=== PATIENT | female | born 1970 | race Caucasian/White ===

== ENCOUNTER 2016-07-05 01:24 | Emergency (ER) | payer MEDICAID, OTHER ==
[~2016-07-05] VITALS: Ht 160 cm; Wt 74.8 kg
[2016-07-05 01:30] VITALS: BP 179/90
[2016-07-05] MEDS ORDERED: METO37.5 PO (01:43)
[2016-07-05] MEDS ORDERED: LEVO10VL IM (01:43)
[2016-07-05] MEDS ORDERED: OMEP10CASR PO (01:43)
[2016-07-05 03:01] LABS: EOS # 0.3 K/mm3 (0.0-0.50); EOS % 5.8 % (0.0-3.0); LARGE UNSTAINED CELL # 0.2 K/mm3 (0.0-0.4); LARGE UNSTAINED CELL % 3.6 % (0.0-4.0); LYMPH # 1.2 K/mm3 (1.5-4.5); LYMPH % 24.6 % (24.0-44.0); MEAN CORPUSCULAR HEMOGLOBIN 17.9 pg (27.0-33.0); MEAN CORPUSCULAR HGB CONC 26.2 g/dl (32.0-36.5); MEAN CORPUSCULAR VOLUME 68.4 fl (80.0-96.0); MONO # 0.3 K/mm3 (0.0-0.8); MONO % 6.6 % (0.0-5.0); NEUTROPHILS # 2.8 K/mm3 (1.8-7.7); NEUTROPHILS % 58.4 % (36.0-66.0); PLATELET COUNT, AUTOMATED 368 k/mm3 (150-450); WHITE BLOOD COUNT 4.8 K/mm3 (4.0-10.0)
[2016-07-05 03:14] LABS: ADD MORPHOLOGY? YES
[2016-07-05 03:20] LABS: ANISOCYTOSIS 2+; HYPOCHROMASIA 3+; MICROCYTOSIS 2+
[2016-07-05 03:21] LABS: TARGET CELLS 1+
[2016-07-05 03:23] LABS: ANION GAP 13 MEQ/L (8-16); BLOOD UREA NITROGEN 5 MG/DL (7-18); CALCIUM LEVEL 8.5 MG/DL (8.5-10.1); CARBON DIOXIDE LEVEL 22 MEQ/L (21-32); CHLORIDE LEVEL 108 MEQ/L (98-107); CREATININE FOR GFR 0.58 MG/DL (0.55-1.02); GLOMERULAR FILTRATION RATE > 60.0 (>58); GLUCOSE, FASTING 104 MG/DL (70-105); POTASSIUM SERUM 3.7 MEQ/L (3.5-5.1); SODIUM LEVEL 143 MEQ/L (136-145)
--- NOTE | 2016-07-05 09:59 | ECGEPIP ---
Stationary ECG Study [facility] - ED Test Date: 2016-07-05 Pat Name: JONA HAM Department: Room: - Gender: F Faculty Research Assistant: stefano : 1970 Requested By: MARIETTA Kapadia Order Number: [id number] Reading MD: Carol Ann Cunningham Measurements Intervals [place] Rate: 100 P: 11 [place]: 151 QRS: 11 QRSD: 94 T: -3 QT: 342 QTc: 442 Interpretive Statements SINUS TACHYCARDIA MODERATE ST DEPRESSION NO PRIOR FOR COMPARISON Electronically Signed On 07-05-2016 9:08:57 EDT by Carol Ann Cunningham
[2016-07-06] MEDS ORDERED: SUCR1SS PO (14:26)
[2016-07-06] MEDS ORDERED: PROT1TAB2 PO (14:28)
== END 2016-07-05 03:43 | disposition left against medical advice (07) ==
LOC: M ED 03:18
DX: R07.89 Other chest pain (principal); D64.9 Anemia, unspecified; I10 Essential (primary) hypertension; E03.9 Hypothyroidism, unspecified; Z82.49 Family history of ischemic heart disease and other diseases of the circulatory system

== ENCOUNTER 2016-07-06 08:49 | Emergency (ER) | payer OTHER ==
[~2016-07-06] VITALS: Ht 160 cm; Wt 74.4 kg
[~2016-07-06 08:49] MED LIST: LEVO10VL IM; METO37.5 PO; OMEP10CASR PO
--- NOTE | 2016-07-06 09:46 | REP ---
PORTABLE CHEST X-RAY: SINGLE VIEW. HISTORY: Chest pain. FINDINGS: The lungs are well inflated and clear. Pleural angles are sharp. Heart size is normal. Pulmonary vasculature is not increased. EKG monitoring electrodes overlie the chest. IMPRESSION: No active disease. Signed by Edgardo Fragoso MD 07/06/2016 06:17 P
[2016-07-06 09:50] LABS: BASO % 0.8 % (0.0-1.0); EOS # 0.2 K/mm3 (0.0-0.50); EOS % 5.2 % (0.0-3.0); LARGE UNSTAINED CELL # 0.2 K/mm3 (0.0-0.4); LYMPH # 1.2 K/mm3 (1.5-4.5); LYMPH % 24.1 % (24.0-44.0); MEAN CORPUSCULAR HEMOGLOBIN 17.4 pg (27.0-33.0); MEAN CORPUSCULAR HGB CONC 25.9 g/dl (32.0-36.5); MEAN CORPUSCULAR VOLUME 67.3 fl (80.0-96.0); MONO # 0.4 K/mm3 (0.0-0.8); MONO % 8.1 % (0.0-5.0); NEUTROPHILS # 2.8 K/mm3 (1.8-7.7); NEUTROPHILS % 57.8 % (36.0-66.0); PLATELET COUNT, AUTOMATED 388 k/mm3 (150-450); RED CELL DISTRIBUTION WIDTH 19.9 % (11.5-14.5); WHITE BLOOD COUNT 4.8 K/mm3 (4.0-10.0)
[2016-07-06 09:53] LABS: ALBUMIN 3.4 GM/DL (3.2-5.2); ALBUMIN/GLOBULIN RATIO 0.69 (1.00-1.93); ALKALINE PHOSPHATASE 101 U/L (45-117); ALT/SGPT 59 U/L (12-78); AMYLASE 53 U/L (25-115); ANION GAP 14 MEQ/L (8-16); AST/SGOT 74 U/L (15-37); BILIRUBIN,DIRECT < 0.1 MG/DL (0.0-0.2); BILIRUBIN,TOTAL 0.3 MG/DL (0.2-1.0); BLOOD UREA NITROGEN 3 MG/DL (7-18); CALCIUM LEVEL 8.7 MG/DL (8.5-10.1); CARBON DIOXIDE LEVEL 20 MEQ/L (21-32); CHLORIDE LEVEL 102 MEQ/L (98-107); CREATININE FOR GFR 0.64 MG/DL (0.55-1.02); GLOMERULAR FILTRATION RATE > 60.0 (>58); GLUCOSE, FASTING 107 MG/DL (70-105); POTASSIUM SERUM 3.5 MEQ/L (3.5-5.1); SODIUM LEVEL 136 MEQ/L (136-145); TOTAL PROTEIN 8.3 GM/DL (6.4-8.2)
[2016-07-06 09:56] LABS: ADD MORPHOLOGY? YES
[2016-07-06] MEDS ORDERED: GI COCKTAIL 50ML BTL(HYOSCYAMINE/MAALOX/LIDOCAINE VISCOUS)(1:3:1) PO ONE (10:00)
[2016-07-06] MEDS ORDERED: SUCRALFATE 1 GM TAB PO ONE (10:00)
[2016-07-06 10:19] LABS: HYPOCHROMASIA 3+; MICROCYTOSIS 3+; TEAR DROP CELLS 1+
--- NOTE | 2016-07-06 11:20 | ECGEPIP ---
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 RBBB NSTTW ABNORMALITIES SIMILAR TO 07/05/16 Electronically Signed On 07-06-2016 11:20:03 EDT by Claudio De Los Santos
[2016-07-06] MEDS ORDERED: SUCR1SS PO (14:26)
[2016-07-06] MEDS ORDERED: PROT1TAB2 PO (14:28)
[2016-07-06] MEDS ORDERED: ENOXAPARIN 80 MG/0.8 ML SYRINGE (J1650) SC ONE (16:15)
[2016-07-06] MEDS ORDERED: CLOPIDOGREL 75 MG TAB PO ONE (16:15)
[2016-07-06] MEDS ORDERED: ONDANSETRON 4MG/2ML VIAL (J2405) IV ONE (16:30)
--- NOTE | 2016-07-06 17:36 | ECGEPIP ---
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 RBBB NONSPECIFIC T WAVE ABNORMALITY SIMILAR TO PRIOR ON SAME DATE Electronically Signed On 07-06-2016 17:36:34 EDT by Claudio De Los Santos
[2016-07-06 18:41] VITALS: BP 172/87
== END 2016-07-06 18:42 | disposition short-term general hospital (02) ==
LOC: EDBD 08:49 → M ED 09:55
DX: I24.9 Acute ischemic heart disease, unspecified (principal); I10 Essential (primary) hypertension; K21.9 Gastro-esophageal reflux disease without esophagitis; F17.200 Nicotine dependence, unspecified, uncomplicated; Z79.899 Other long term (current) drug therapy; Z82.49 Family history of ischemic heart disease and other diseases of the circulatory system
CPT/HCPCS: 71010; 80048; 80076; 82150; 82550; 82553; 83690; 83880; 84443; 85025; 93005; 93041; 94760; 96372; 96374; 99285; J1650; J2405

== ENCOUNTER 2016-08-08 13:52 | Outpatient (RCR) | payer OTHER ==
[~2016-08-08 13:52] MED LIST changes: +PROT1TAB2 PO; +SUCR1SS PO
== END 2016-08-21 ==
LOC: M CR 13:52
PROVIDERS: ATTEND Internal Medicine Cardiovascular Disease
DX: Z51.89 Encounter for other specified aftercare (principal); Z98.1 Arthrodesis status

== ENCOUNTER → 2016-08-15 | Outpatient (CLI) | payer OTHER ==
[2016-08-15 18:40] LABS: MEAN CORPUSCULAR HEMOGLOBIN 25.6 pg (27.0-33.0); MEAN CORPUSCULAR HGB CONC 29.8 g/dl (32.0-36.5); MEAN CORPUSCULAR VOLUME 85.8 fl (80.0-96.0); RED CELL DISTRIBUTION WIDTH 26.6 % (11.5-14.5); WHITE BLOOD COUNT 4.3 K/mm3 (4.0-10.0)
== END ==
LOC: M SMT 14:25
PROVIDERS: ATTEND Internal Medicine Cardiovascular Disease
DX: D64.9 Anemia, unspecified (principal)

== ENCOUNTER 2016-08-22 08:31 | Outpatient (RCR) | payer OTHER ==
[2016-09-20] MEDS ORDERED: LEVO125T3 (08:37)
[2016-09-20] MEDS ORDERED: FERR32TA (08:37)
[2016-09-20] MEDS ORDERED: ASPI81CH (08:37)
[2016-09-20] MEDS ORDERED: VITA-193 (08:37)
[2016-09-20] MEDS ORDERED: ATOR40TA (08:37)
[2016-09-20] MEDS ORDERED: OMEP20CA3 (08:37)
[2016-09-20] MEDS ORDERED: FOLI1TAB2 (08:37)
[2016-09-20] MEDS ORDERED: METO-346 PO (08:37)
== END 2016-09-21 ==
LOC: M CR 08:31
PROVIDERS: ATTEND Internal Medicine Cardiovascular Disease
DX: Z51.89 Encounter for other specified aftercare (principal); Z98.1 Arthrodesis status

== ENCOUNTER → 2016-09-12 | Outpatient (CLI) | payer OTHER ==
[~2016-09-12] MED LIST changes: +ASPI81CH; +ATOR40TA; +FERR32TA; +FOLI1TAB2; +LEVO125T3; +METO-346 PO; +OMEP20CA3; +VITA-193
--- NOTE | 2016-09-12 12:56 | REP ---
Pelvic ultrasound including transabdominal, endovaginal and Doppler ultrasound assessment: The uterus is anteverted and normal size measuring 8.03 x 1 x 4.3 cm. The myometrium is heterogeneous. There is a 1.9 cm fibroid in the posterior myometrium that extends from the subserosal surface to the submucosal surface. The endometrium is not thickened measuring 9.4 mm. The ovaries are normal size. Right ovary measures 2.6 x 1.6 x 1.7 cm. Left ovary measures 1.9 x 1.2 x 1.3 cm. There is a 1.5 cm left ovarian follicle. There is vascular flow in the right ovary, with the Doppler resistive index of the intraparenchymal arteries on the right measuring 0.53. There is no Doppler assessment of the intraparenchymal arteries on the left. No free fluid in the pelvis. Impression: 1.9 cm fibroid in the posterior myometrium extending from the subserosal surface to the submucosal surface. 1.5 cm left ovarian follicle. Signed by Francisco Javier Thompson MD 09/12/2016 12:47 P
== END ==
LOC: M SMT 11:29
PROVIDERS: ATTEND Obstetrics & Gynecology
DX: N93.9 Abnormal uterine and vaginal bleeding, unspecified (principal); D25.9 Leiomyoma of uterus, unspecified

== ENCOUNTER → 2016-09-12 | Outpatient (CLI) | payer OTHER ==
[2016-09-12 13:08] LABS: INR 1.09
[2016-09-12 13:11] LABS: MEAN CORPUSCULAR HEMOGLOBIN 30.3 pg (27.0-33.0); MEAN CORPUSCULAR VOLUME 97.8 fl (80.0-96.0); RED CELL DISTRIBUTION WIDTH 23.6 % (11.5-14.5); WHITE BLOOD COUNT 4.8 K/mm3 (4.0-10.0)
[2016-09-12 13:57] LABS: ALBUMIN 3.7 GM/DL (3.2-5.2); ALBUMIN/GLOBULIN RATIO 0.84 (1.00-1.93); ALKALINE PHOSPHATASE 96 U/L (45-117); ALT/SGPT 29 U/L (12-78); ANION GAP 10 MEQ/L (8-16); AST/SGOT 39 U/L (15-37); BILIRUBIN,TOTAL 0.2 MG/DL (0.2-1.0); BLOOD UREA NITROGEN 10 MG/DL (7-18); CALCIUM LEVEL 8.5 MG/DL (8.5-10.1); CARBON DIOXIDE LEVEL 24 MEQ/L (21-32); CHLORIDE LEVEL 105 MEQ/L (98-107); CHOLESTEROL LEVEL 199 MG/DL (<200); CREATININE FOR GFR 0.65 MG/DL (0.55-1.02); GLOMERULAR FILTRATION RATE > 60.0 (>58); GLUCOSE, FASTING 84 MG/DL (70-105); SODIUM LEVEL 139 MEQ/L (136-145); TOTAL PROTEIN 8.1 GM/DL (6.4-8.2); TRIGLYCERIDES LEVEL 231 MG/DL (<150)
== END ==
LOC: M LAB 12:34
PROVIDERS: ATTEND Family Medicine
DX: Z01.812 Encounter for preprocedural laboratory examination (principal); I10 Essential (primary) hypertension

== ENCOUNTER → 2016-09-13 | Outpatient (REF) | payer OTHER | LOC: M LAB REF 10:50 | PROVIDERS: ATTEND Obstetrics & Gynecology | DX: N93.9 Abnormal uterine and vaginal bleeding, unspecified (principal) ==

== ENCOUNTER 2016-09-22 09:00 | Outpatient (RCR) | payer OTHER ==
[~2016-09-22 09:00] MED LIST changes: -ATOR40TA; +ATOR40TA75; -FOLI1TAB2; +FOLI1TAB4; -LEVO125T3; +LEVO125T4
[2016-10-03] MEDS ORDERED: ASPI81TA85 PO (06:58)
[2016-10-03] MEDS ORDERED: CARV12.5 PO (06:58)
[2016-10-04] MEDS ORDERED: MOTR200T44 PO (09:20)
== END 2016-10-21 ==
LOC: M CR 09:00
PROVIDERS: ATTEND Internal Medicine Cardiovascular Disease
DX: Z51.89 Encounter for other specified aftercare (principal); Z98.1 Arthrodesis status

== ENCOUNTER 2016-10-03 06:00 | Day surgery (SDC) | payer OTHER ==
[2016-10-03] VITALS (7 sets, daily range): BP systolic 128–192; BP diastolic 68–96
[~2016-10-03] VITALS: Ht 160 cm; Wt 75.0 kg
[~2016-10-03 06:00] MED LIST changes: +ATOR40TA; -ATOR40TA75; +FOLI1TAB2; -FOLI1TAB4; +LEVO125T3; -LEVO125T4
[2016-10-03] MEDS ORDERED: LIDOCAINE 1% SDV 5 ML VIAL SC ONE (06:15)
[2016-10-03] MEDS ORDERED: LR 1,000 ML IV SCH ×2 (06:15→09:00)
[2016-10-03 06:24] LABS: MEAN CORPUSCULAR HEMOGLOBIN 32.9 pg (27.0-33.0); MEAN CORPUSCULAR VOLUME 99.8 fl (80.0-96.0); RED CELL DISTRIBUTION WIDTH 18.8 % (11.5-14.5); WHITE BLOOD COUNT 4.6 K/mm3 (4.0-10.0)
[2016-10-03 06:39] LABS: CONTROL LINE HCG INT CTR LINE PRESENT
[2016-10-03] MEDS ORDERED: ASPI81TA85 PO (06:58)
[2016-10-03] MEDS ORDERED: CARV12.5 PO (06:58)
[2016-10-03] MEDS ORDERED: SILVER NITRATE APPLICATOR As Ordered ONE (07:16)
[2016-10-03] MEDS ORDERED: LIDOCAINE 2% INJ 100 MG/5 ML SDV (FOR ANES.) As Ordered ONE (07:38)
[2016-10-03] MEDS ORDERED: MIDAZOLAM INJ 2 MG/2 ML VIAL (J2250) As Ordered ONE (07:38)
[2016-10-03] MEDS ORDERED: PROPOFOL 200 MG/20 ML VIAL As Ordered ONE (07:38)
[2016-10-03] MEDS ORDERED: dexameTHASONE 4 MG/ML 1ML VIAL (J1100) As Ordered ONE (07:38)
[2016-10-03] MEDS ORDERED: fentaNYL 100 MCG/2 ML INJECTION (J3010) As Ordered ONE ×2 (07:38→10:05)
[2016-10-03] MEDS ORDERED: ONDANSETRON 4MG/2ML VIAL (J2405) As Ordered ONE (07:47)
[2016-10-03] MEDS ORDERED: ONDANSETRON 4MG/2ML VIAL (J2405) IV PRN (09:00)
[2016-10-03] MEDS ORDERED: HYDROmorphone HCL 1 MG/ML SYRINGE (J1170) IV PRN (09:00)
[2016-10-03] MEDS ORDERED: FERROUS GLUCONATE 324 MG TAB PO SCH (09:00)
[2016-10-03] MEDS ORDERED: PERCOCET 5MG/325MG TAB PO PRN (09:00)
[2016-10-03] MEDS ORDERED: CARVedilol 12.5 MG TAB PO SCH ×2 (09:00→21:00)
[2016-10-03] MEDS: LABETALOL HCL 100 MG/20 ML VIAL IV SCH ×6 (09:30→10:35)
[2016-10-03] MEDS ORDERED: LABETALOL HCL 100 MG/20 ML VIAL As Ordered ONE (09:32)
[2016-10-03] MEDS ORDERED: hydrALAZINE INJ 20 MG/ML VIAL As Ordered ONE (09:58)
[2016-10-03] MEDS: hydrALAZINE INJ 20 MG/ML VIAL IV SCH ×4 (10:01→10:30)
[2016-10-03] MEDS: fentaNYL 100 MCG/2 ML INJECTION (J3010) IV PRN ×4 (10:06→10:56)
[2016-10-03] MEDS: **hydrALAZINE** 10 MG TAB PO PRN (13:52)
[2016-10-03] MEDS: ATORVASTATIN 20 MG TAB PO SCH (13:53)
[2016-10-03] MEDS: FERROUS GLUCONATE 324 MG TAB PO SCH ×2 (13:53→20:15)
[2016-10-03] MEDS: CARVedilol 12.5 MG TAB PO SCH ×2 (13:53→20:15)
[2016-10-03] MEDS: LEVOTHYROXINE 125MCG TABLET (0.125MG) PO SCH (13:53)
[2016-10-03] MEDS: FOLIC ACID 1 MG TAB PO SCH (13:54)
[2016-10-03] MEDS: LR 1,000 ML IV SCH ×2 (13:54→16:09)
--- NOTE | 2016-10-03 13:58 | CR.PDOC ---
[facility] Consultation Consultation HOSPITALIST CONSULT NOTE Date of consult: 10/03/2016 Referring Provider: Dr. Gregory PCP: Dr. Cooley Reason for Consult: Uncontrolled blood pressure HPI: 46-year-old female with hypertension, coronary artery disease status post PR and bare metal stents in June 2016, hypothyroidism, gastritis who underwent same-day surgery with Dr. Gregory for abnormal uterine bleeding. He performed an endometrial ablation and hysteroscopy today. Dr. Gregory has called us to evaluate the patient because she has been noted to be hypertensive throughout the day, and the anesthesiologist was uncomfortable discharging her home with her blood pressures. Upon my interview with the patient, she reports some cramping, but otherwise states that she feels well. She denies any chest pain or difficulty breathing and states that she did not have any vomiting postoperatively. She tells me that she used to take metoprolol twice a day, but approximately 10 days ago, this was changed to Coreg. She states that she did take her blood pressure medicine this morning. She tells me that since the change in her medication, she has been checking her blood pressure at home, and in the mornings it has been running in the 180s, in the afternoons it has been running in the 150s to 160s, and in the evening it is been running in the 130s. She states that this is not a change, as even when she was taking the metoprolol , her blood pressure had been running high. 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 She usually does not take her Coreg until she eats breakfast, which is sometimes not until 11 AM. 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 She quit smoking when she had her heart attack on 07/06/2016. She reports drinking approximately 3-5 alcoholic drinks daily, and her last drink was last night. Allergies: No known drug allergies Review of systems: General: Negative for fever and chills Eyes: Negative for vision changes and ocular discharge ENT: Negative for sore throat and nose bleed Cardiovascular: Negative for chest pain and palpitations Respiratory: Negative for cough and shortness of breath GI: Negative for nausea, vomiting, diarrhea, constipation Musculoskeletal: Negative for neck and back pain Skin: Negative for rash Neuro: Negative for headache, dizziness, numbness, tingling Psych: Negative for depression and suicidal ideation Endocrine: Negative for polyuria : Negative for dysuria Heme: Positive for vaginal bleeding, which is why she underwent endometrial ablation today Home meds: See below Physical exam: Vital signs: Vital Sign - Last 24 Hours 10/03/16 10/03/16 10/03/16 10/03/16 06:45 08:05 08:19 08:35 Temp 99.0 97.6 Pulse 70 82 64 70 Resp 16 18 18 18 B/P (MAP) 175/86 (115) 179/85 (116) 157/84 (108) 162/96 (118) Pulse Ox 96 94 93 97 O2 Delivery Room Air Room Air Room Air Room Air 10/03/16 10/03/16 10/03/16 10/03/16 08:47 09:05 09:20 09:30 Temp 97.8 Pulse 64 64 60 65 Resp 18 18 18 B/P (MAP) 170/94 (119) 191/90 (123) 200/90 (126) 203/94 Pulse Ox 97 95 94 O2 Delivery Room Air Room Air Room Air 10/03/16 10/03/16 10/03/16 10/03/16 09:35 09:39 09:44 09:50 Pulse 61 64 60 60 Resp 18 B/P (MAP) 212/94 (133) 212/96 204/94 212/108 Pulse Ox 94 O2 Delivery Room Air 10/03/16 10/03/16 10/03/16 10/03/16 09:50 09:55 10:01 10:05 Pulse 60 61 63 Resp 18 18 B/P (MAP) 212/108 (142) 213/94 227/103 206/91 (129) Pulse Ox 93 O2 Delivery Room Air Room Air 10/03/16 10/03/16 10/03/16 10/03/16 10:06 10:07 10:11 10:12 Resp 18 18 B/P (MAP) 211/98 194/86 10/03/16 10/03/16 10/03/16 10/03/16 10:18 10:30 10:34 10:35 Pulse 73 70 74 Resp 20 20 B/P (MAP) 169/67 (101) 174/81 183/78 (113) 183/78 Pulse Ox 94 94 O2 Delivery Room Air Room Air 10/03/16 10/03/16 10/03/16 10/03/16 10:50 10:56 11:05 11:22 Pulse 70 70 80 Resp 20 18 20 20 B/P (MAP) 169/79 (109) 173/79 (110) 161/72 (101) Pulse Ox 95 96 97 O2 Delivery Room Air Room Air Room Air 10/03/16 10/03/16 10/03/16 10/03/16 11:35 11:50 11:53 12:05 Pulse 69 72 73 84 Resp 20 20 20 20 B/P (MAP) 179/82 (114) 178/84 (115) 176/81 (112) 180/81 (114) Pulse Ox 97 97 99 98 O2 Delivery Room Air Room Air Room Air Room Air 10/03/16 10/03/16 10/03/16 12:56 13:52 13:53 Pulse 80 80 Resp 20 B/P (MAP) 183/93 (123) 192/96 192/96 Pulse Ox 97 O2 Delivery Room Air Gen.: awake, alert, no acute distress Eyes: Extraocular movements intact, normal sclera ENT: Moist mucous membranes Cardiovascular: RRR, no murmurs rubs or gallops Lungs: clear to auscultation bilaterally, no rales, rhonchi, or wheeze Abdomen: Soft, NT/ND, normal BS Musculoskeletal: normal range of motion Extremities: No peripheral edema Neuro: alert and oriented 3, normal speech, no focal deficits Psych: Normal mood with congruent affect Labs and radiology: See below CBC is unremarkable Assessment and plan: 46-year-old female with hypertension, coronary artery disease status post PR and bare metal stents in June 2016, hypothyroidism, gastritis who underwent same-day surgery with Dr. Gregory for abnormal uterine bleeding. We have been consulted for uncontrolled hypertension. 1. Hypertension: This has been uncontrolled all day, and upon discussion with the patient, it appears that it has been uncontrolled as an outpatient as well. She recently underwent a medication change 10 days ago, and has not yet had any follow-up with her physicians to have dose adjustments. From what she reports to me of the blood pressure she is seeing at home, it does not appear that her blood pressure currently is much different than it has been as an outpatient. At this time, I would recommend that the patient's Coreg be increased from 12.5 mg by mouth twice a day to 25 mg by mouth BID. The patient will need to follow- up with her primary care physician within the next week for further blood pressure check and dose adjustments. The patient reports that she often does not take her morning dose until 11 AM when she eats breakfast, and she also notes that her blood pressure is highest in the mornings. I have recommended to her that she begin taking her blood pressure medicine as soon as she wakes up. While she is inpatient, and until she receives her first dose of the increased coreg (which should be this evening), we will use PRN PO hydralazine for extremely elevated BPs. 2. Coronary artery disease status post PR and bare metal stents in June 2016: Continue home statin, beta brianna. The patient should resume her home aspirin when she gets approval from her surgeon to do so. 3. Hypothyroidism: Continue home Synthroid. 4. Gastritis: Continue home PPI. 5. Daily alcohol consumption: The patient and I did discuss the benefits of alcohol cessation. While the patient has thought of this before, it does not sound that she is quite ready to stop at this time. She denies any prior history of withdrawal symptoms even when she has gone several days without a drink. If the patient remains here beyond tomorrow, I would advise monitoring her closely for any withdrawal, and if she begins to experience withdrawal, I would recommend scheduled serax with PRN ativan. DVT prophylaxis: As per her surgeon Thank you for this consult. We will continue to follow along with you. Dr. Paz will assume coverage in the morning. Vital Signs/I&O Vital Signs Date Time Temp Pulse Resp B/P (MAP) Pulse Ox O2 Delivery O2 Flow Rate FiO2 10/03/16 13:53 80 192/96 10/03/16 12:56 20 97 Room Air 10/03/16 09:05 97.8 Laboratory Data Labs 24H Laboratory Tests 2 10/03/16 06:14: Human Chorionic Gonadotropin, Qual NEGATIVE CBC/BMP Laboratory Tests 10/03/16 06:14 Red Blood Count 3.62 L, Mean Corpuscular Volume 99.8 H, Mean Corpuscular Hemoglobin 32.9, Mean Corpuscular Hemoglobin Concent 33.0, Red Cell Distribution Width 18.8 H Allergies Coded Allergies: No Known Allergies (Unverified , 10/03/16) Home Medications Scheduled Aspirin (Aspir-81) 81 Mg Tab, 81 MG PO DAILY, #30 (Reported) Atorvastatin Calcium (Atorvastatin Calcium) 40 Mg Tab, DAILY, #30 (Reported) Carvedilol (Carvedilol) 12.5 Mg Tab, 12.5 MG PO BID, (Reported) Ferrous Gluconate (Ferrous Gluconate) 324 Mg Tab, BID, #60 (Reported) Omeprazole (Omeprazole) 20 Mg Cap, BID, #60 (Reported) Miscellaneous Medications Cyanocobalamin (Vitamin B-12) 500 Mcg Tab, #30 (Reported) Folic Acid (Folic Acid) 1 Mg Tab, #30 (Reported) Levothyroxine Sodium (Synthroid) 125 Mcg Tab, #30 (Reported) HOWARD ROBLES Oct 03, 2016 13:58
[2016-10-03] MEDS: ASPIRIN 81 MG ENTERIC TAB PO SCH (14:13)
--- NOTE | 2016-10-03 14:31 | RO ---
DATE OF PROCEDURE: 10/03/2016 PREOPERATIVE DIAGNOSIS: Abnormal uterine bleeding. POSTOPERATIVE DIAGNOSIS: Abnormal uterine bleeding. PROCEDURE PERFORMED: Hysteroscopy, dilatation and curettage, NovaSure endometrial ablation. SURGEON: Evangelist Gregory DO RESET MERCHANDISER: None. ANESTHESIA: General via LMA. SPECIMENS TO PATHOLOGY: Endometrial curettings. ESTIMATED BLOOD LOSS Less than 5 mL. FLUIDS REPLACED: 600 mL of lactated Ringer's. DRAINS: In-and-out catheter, 50 mL of urine output. COMPLICATIONS: None. PREOPERATIVE ANTIBIOTICS: None indicated. INTRAOPERATIVE FINDINGS: Uterine cavity approximately 6 cm in length. Uterus sounded to approximately 9 cm with cervical length 3 cm. Cavity width assessment was 4.2 cm. The power setting was 139, total ablation time was 47 seconds. Hysteroscope findings: No evidence of the intrauterine masses/intracavitary masses. INDICATION: The patient is a 46-year-old with abnormal uterine bleeding, desirous of NovaSure endometrial ablation. Assessment of the endometrium prior to today's procedure revealed benign tissue. No evidence of hyperplasia, neoplasia or malignancy. PROCEDURE: The patient was counseled and consented on risks, benefits, indications, and alternatives of the procedure. Informed consent was obtained. She was taken to the operating room with an IV running, placed on operating table in the dorsal supine position. General anesthesia was administered and airway secured without any difficulty. She was placed in the high lithotomy position. She was prepared and draped in normal sterile fashion. Time-out was performed per protocol. The bladder was drained with an in-and-out catheter under sterile conditions. Sterile speculum was placed with good visualization of the entire cervix. The anterior lip of the cervix was grasped with single-tooth tenaculum and downward traction was applied. The uterus was sounded to 9 cm. The cervical length was assessed to be 3 cm, giving a cavity length of 6 cm. The cervix was then sequentially dilated with Luis dilators up to #17. The hysteroscope was placed transcervical into the intrauterine cavity with findings noted above. Normal hysteroscope findings were noted. No intracavitary mass was noted. The hysteroscope was removed. Sharp curettage was then performed throughout the intrauterine cavity. The tissue was sent to pathology for permanent section. The NovaSure device was inserted transcervical into the intrauterine cavity and deployed in typical fashion. The width assessment was performed given 4.2 cm. The cavity assessment was then activated. The cavity assessment cleared and the NovaSure device was activated. Total ablation time was 47 seconds. The NovaSure device was removed in typical fashion. The mesh wiring was examined after removal and noted to have charred tissue on both sides. The hysteroscope was placed transcervically into the intrauterine cavity for one final intrauterine cavity assessment and the charred tissue was noted throughout globally in the intrauterine cavity. Excellent filling and distension of the intrauterine cavity was noted indicating no evidence of uterine perforation. The hysteroscope was removed. Claim Auditor images were printed and placed in her chart. The single-tooth tenaculum was removed. The tenaculum sites were noted to be hemostatic. The uterus was drained of any excess fluid. The os was inspected and minimal bleeding from the cervical os was noted. The sponge, lap, needle and sponge counts were correct. The patient tolerated the entire procedure very well. She was taken to the postanesthesia care unit in good and stable condition.
[2016-10-03] MEDS: IBUPROFEN 800 MG TAB PO PRN ×2 (14:40→23:10)
[2016-10-03] MEDS: OMEPRAZOLE 20 MG CAP PO SCH (20:15)
[2016-10-04] VITALS (11 sets, daily range): BP systolic 140–240; BP diastolic 64–114
[2016-10-04] MEDS: **hydrALAZINE** 10 MG TAB PO PRN (02:08)
[2016-10-04] MEDS ORDERED: hydrALAZINE INJ 20 MG/ML VIAL IV ONE (02:30)
[2016-10-04] MEDS ORDERED: ALPRAZolam 0.5 MG TAB PO ONE (03:00)
[2016-10-04] MEDS: LEVOTHYROXINE 125MCG TABLET (0.125MG) PO SCH (06:09)
[2016-10-04] MEDS: FERROUS GLUCONATE 324 MG TAB PO SCH (08:23)
[2016-10-04] MEDS: FOLIC ACID 1 MG TAB PO SCH (08:24)
[2016-10-04] MEDS: OMEPRAZOLE 20 MG CAP PO SCH (08:24)
[2016-10-04] MEDS: ATORVASTATIN 20 MG TAB PO SCH (08:24)
[2016-10-04] MEDS: ASPIRIN 81 MG ENTERIC TAB PO SCH (08:24)
[2016-10-04] MEDS: CARVedilol 12.5 MG TAB PO SCH (08:24)
[2016-10-04] MEDS ORDERED: MOTR200T44 PO (09:20)
== END 2016-10-04 09:57 | disposition home or self-care (01) ==
LOC: M SDC 06:00 → M MSPAV 13:36 → M ICU 10-04 02:40 → M SDC 10-04 09:57
PROVIDERS: ATTEND Obstetrics & Gynecology
DX: N93.9 Abnormal uterine and vaginal bleeding, unspecified (principal); I10 Essential (primary) hypertension; I25.10 Atherosclerotic heart disease of native coronary artery without angina pectoris; I25.2 Old myocardial infarction; E03.9 Hypothyroidism, unspecified; K21.9 Gastro-esophageal reflux disease without esophagitis; K27.9 Peptic ulcer, site unspecified, unspecified as acute or chronic, without hemorrhage or perforation; F41.9 Anxiety disorder, unspecified; Z95.5 Presence of coronary angioplasty implant and graft; Z87.891 Personal history of nicotine dependence

== ENCOUNTER → 2016-12-19 | Outpatient (REF) | payer OTHER ==
[~2016-12-19] MED LIST changes: +ASPI81TA85 PO; -ATOR40TA; +ATOR40TA75; +CARV12.5 PO; -FOLI1TAB2; +FOLI1TAB4; -LEVO125T3; +LEVO125T4; +MOTR200T44 PO
[2016-12-19 15:43] LABS: MEAN CORPUSCULAR HEMOGLOBIN 35.9 pg (27.0-33.0); MEAN CORPUSCULAR HGB CONC 33.6 g/dl (32.0-36.5); MEAN CORPUSCULAR VOLUME 106.7 fl (80.0-96.0); RED CELL DISTRIBUTION WIDTH 15.4 % (11.5-14.5); WHITE BLOOD COUNT 4.3 K/mm3 (4.0-10.0)
== END ==
LOC: M LAB REF 13:23
PROVIDERS: ATTEND Obstetrics & Gynecology
DX: D64.9 Anemia, unspecified (principal)

== ENCOUNTER → 2017-08-24 | Outpatient (REF) | payer OTHER, SELFPAY ==
[2017-08-31 10:14] LABS: HPV LOW VOL RFLX Negative (Negative)
== END ==
LOC: M LAB REF 12:17
DX: Z12.4 Encounter for screening for malignant neoplasm of cervix (principal)
CPT/HCPCS: 88142; G0123

== ENCOUNTER → 2018-08-24 | Outpatient (CLI) | payer OTHER ==
[~2018-08-24] MED LIST changes: -ASPI81CH; +ASPI81CH49; +FOLI1TAB11; -FOLI1TAB4
[2018-08-24 21:03] LABS: BLOOD UREA NITROGEN 11 MG/DL (7-18); CALCIUM LEVEL 8.3 MG/DL (8.5-10.1); CARBON DIOXIDE LEVEL 24 MEQ/L (21-32); CHLORIDE LEVEL 106 MEQ/L (98-107); CREATININE FOR GFR 0.57 MG/DL (0.55-1.30); GLOMERULAR FILTRATION RATE > 60.0 (>58); GLUCOSE, FASTING 82 MG/DL (70-100); POTASSIUM SERUM 3.7 MEQ/L (3.5-5.1); SODIUM LEVEL 139 MEQ/L (136-145)
[2018-08-24 21:07] LABS: BASO # 0.1 10^3/uL (0.0-0.2); BASO % 1.1 % (0.0-1.0); EOS # 0.2 10^3/uL (0.0-0.50); EOS % 2.8 % (0.0-3.0); HEMOGLOBIN 14.1 g/dl (12.0-15.5); LYMPH # 1.9 10^3/uL (1.5-4.5); LYMPH % 34.8 % (24.0-44.0); MEAN CORPUSCULAR HEMOGLOBIN 34.2 pg (27.0-33.0); MEAN CORPUSCULAR HGB CONC 33.6 g/dl (32.0-36.5); MEAN CORPUSCULAR VOLUME 101.9 fl (80.0-96.0); MONO # 0.6 10^3/uL (0.0-0.8); MONO % 11.5 % (0.0-5.0); NEUTROPHILS # 2.6 10^3/uL (1.8-7.7); NEUTROPHILS % 49.6 % (36.0-66.0); PLATELET COUNT, AUTOMATED 227 10^3/uL (150-450); RED BLOOD COUNT 4.12 10^6/uL (4.00-5.40); WHITE BLOOD COUNT 5.3 10^3/uL (4.0-10.0)
== END ==
LOC: M WUC 15:38
PROVIDERS: ATTEND Internal Medicine Cardiovascular Disease
DX: I25.10 Atherosclerotic heart disease of native coronary artery without angina pectoris (principal)

== ENCOUNTER → 2019-02-14 | Outpatient (CLI) | payer OTHER ==
[~2019-02-14] MED LIST changes: +CYAN500T9; -OMEP20CA3; +OMEP20CA4; -VITA-193
[2019-02-16 15:57] LABS: HPV HYBRID CAPTURE II Negative (Negative)
== END ==
LOC: M SMT 15:03
PROVIDERS: ATTEND Obstetrics & Gynecology
DX: Z12.4 Encounter for screening for malignant neoplasm of cervix (principal)

== ENCOUNTER → 2019-05-28 | Outpatient (CLI) | payer OTHER ==
[~2019-05-28] MED LIST changes: +OMEP1CAP73; -OMEP20CA4
--- NOTE | 2019-05-28 16:16 | REPMRS ---
Patient History The patient states she had a clinical breast exam in 02/09.Family history of breast cancer under age 50 in sister, breast cancer at age 50 or over in maternal aunt, premenopausal breast cancer at age 50 or over in maternal aunt, prostate cancer at age 50 or over in maternal grandfather, endometrial cancer at age 18 in sister. Benign US guided breast biopsy of the right breast, May 21, 2012. Took hormonal contraceptives for 15 years. Digital Woman Screen Mammo: May 28, 2019 - Exam #: [id number] Bilateral CC and MLO view(s) were taken. Technologist: Kristin Murphy, Technologist Prior study comparison: May 21, 2012, right breast digital mammo diagnostic unilateral, performed at [facility]. April 03, 2012, right breast digital mammo diagnostic unilateral, performed at [facility]. FINDINGS: There are scattered fibroglandular densities. There is a needle biopsy marker clip again noted in the right breast as seen on the May 21, 2012 prior study. There are scattered benign macrocalcifications. There has been no change in the appearance of the mammogram from the prior studies. There is a mild amount of scattered fibroglandular density which is fairly symmetric. There is no interval development of dominant mass, architectural distortion, or grouped microcalcification suggestive of malignancy. 3-D tomosynthesis shows no additional findings. Assessment: BI-RADS/ACR category 2 mammogram. Benign Findings. Recommendation Breast MRI of both breasts in 6 months. Routine screening mammogram of both breasts in 1 year (for women over age 40). This patient's Lifetime Breast Cancer Risk is estimated at 21.1 %. Annual screening Breast MRI scanniing is recommended for patient's whose lifetime risk assessment is over 20%. This mammogram was interpreted with the aid of an FDA-approved computer-aided dectection system. Electronically Signed By: Odilon Fragoso MD 05/28/19 [id number]
== END ==
LOC: M WHC 12:53
PROVIDERS: ATTEND Obstetrics & Gynecology
DX: Z12.31 Encounter for screening mammogram for malignant neoplasm of breast (principal)

== ENCOUNTER → 2019-12-04 | Outpatient (REF) | payer OTHER ==
[~2019-12-04] MED LIST changes: -ASPI81TA85 PO; +ASPI81TA86 PO; +CYAN500T10; -CYAN500T9
== END ==
LOC: M WUC 15:18
PROVIDERS: ATTEND Physician Assistant
DX: J02.9 Acute pharyngitis, unspecified (principal)

== ENCOUNTER → 2020-02-24 | Outpatient (REF) | payer OTHER | LOC: M SFHCWAGY 16:52 | PROVIDERS: ATTEND Obstetrics & Gynecology | DX: Z12.4 Encounter for screening for malignant neoplasm of cervix (principal); N88.8 Other specified noninflammatory disorders of cervix uteri; Z87.42 Personal history of other diseases of the female genital tract ==

== ENCOUNTER → 2020-03-09 | Outpatient (CLI) | payer OTHER ==
[~2020-03-09] MED LIST changes: +PROHANCE 279.3MG/ML 15ML VIAL As Ordered ONE
--- NOTE | 2020-03-09 17:20 | REP ---
INDICATION: FM H/O BREAST CA HIGH RISK. [facility] lifetime risk of breast cancer 21.1%. COMPARISON: Mammogram 05/28/2019. TECHNIQUE: Three [place] MRI imaging was performed with a dedicated breast coil. Axial, coronal, and sagittal T1 and T2 weighted scans were obtained with and without fat saturation in the usual fashion. The study includes dynamically acquired post gadolinium-enhanced imaging with image subtraction. Maximum intensity projection and multi planar reformation imaging is included as well. This study is interpreted with the aid of [employer], an FDA approved computer aided detection (CAD) software program, on a dedicated breast MRI workstation. The gadolinium enhancement dose is 14 mL of intravenous ProHance. FINDINGS: There is mild scattered fibroglandular tissue bilaterally. There is minimal background parenchymal enhancement. No axillary adenopathy is seen. There is a cyst in the right breast at about 12 o'clock which is oval in shape measuring approximately 6 mm in maximum diameter. I see no suspicious enhancing mass or morphologic abnormality bilaterally. IMPRESSION: BI-RADS category 2 benign bilateral breast MRI. Small cyst 12 o'clock right breast. No suspicious enhancing mass or morphologic abnormality. Yearly supplemental screening MRI of the breasts is recommended for patients with an elevated lifetime risk of breast cancer 20% or greater, in addition to annual screening mammography, staggered every 6 months. <Electronically signed by Francisco Javier Arteaga > 03/09/20 1138
== END ==
LOC: M RAD 14:58
PROVIDERS: ATTEND Obstetrics & Gynecology
DX: N60.01 Solitary cyst of right breast (principal); Z80.3 Family history of malignant neoplasm of breast; Z91.89 Other specified personal risk factors, not elsewhere classified
CPT/HCPCS: A9576; C8908

== ENCOUNTER 2021-01-15 14:03 | Outpatient (CLI) | payer OTHER ==
[~2021-01-15] VITALS: Ht 160 cm; Wt 74.1 kg
[~2021-01-15 14:03] MED LIST changes: +ALBUTEROL 90 MCG/ACT 8GM HFA INHALER INH PRN; +ALBUTEROL SULFATE 2.5 MG/0.5 ML INH NEB SOLN INH PRN; -CYAN500T10; +EPINEPHrine INJ 1 MG/ML 1ML AMP IM PRN; +NS 1,000 ML IV SCH; -PROHANCE 279.3MG/ML 15ML VIAL As Ordered ONE; +VITA500T37; +diphenhydrAMINE 50MG/ML VIAL (J1200) IV PRN; +methylPREDNISolone 125MG 2ML VIAL IV PRN
[2021-01-15 14:23] VITALS: BP 134/88
[2021-01-15] MEDS ORDERED: ACETAMINOPHEN TAB 650MG DOSE (2X325MG) PO PRN (15:00)
[2021-01-15 15:54] VITALS: BP 136/88
[2021-01-15 16:23] VITALS: BP 142/88
[2021-01-15] MEDS ORDERED: CASIRIVIMAB/IMDEVIMAB 1,200 MG in NS 250 ML IV ONE (16:30)
[2021-01-15 17:01] VITALS: BP 143/82
[2021-01-15 18:01] VITALS: BP 160/91
== END 2021-01-15 18:02 | disposition home or self-care (01) ==
LOC: M OPCLI4 14:03 → M 4MAIN 14:05 → M OPCLI4 18:02
PROVIDERS: ATTEND Family Medicine Addiction Medicine
DX: U07.1 COVID-19 (principal)

== ENCOUNTER → 2021-11-17 | Outpatient (CLI) | payer OTHER ==
[~2021-11-17] MED LIST changes: -ALBUTEROL 90 MCG/ACT 8GM HFA INHALER INH PRN; -ALBUTEROL SULFATE 2.5 MG/0.5 ML INH NEB SOLN INH PRN; -EPINEPHrine INJ 1 MG/ML 1ML AMP IM PRN; -NS 1,000 ML IV SCH; -diphenhydrAMINE 50MG/ML VIAL (J1200) IV PRN; -methylPREDNISolone 125MG 2ML VIAL IV PRN
== END ==
LOC: M WUC 14:05
PROVIDERS: ATTEND Nurse Practitioner Family
DX: M79.671 Pain in right foot (principal)

== ENCOUNTER → 2021-11-24 | Outpatient (CLI) | payer OTHER | LOC: M RAD 11:10 | PROVIDERS: ATTEND Nurse Practitioner Family | DX: M79.671 Pain in right foot (principal) ==

== ENCOUNTER → 2022-01-14 | Outpatient (CLI) | payer OTHER | LOC: M SOG 14:02 | PROVIDERS: ATTEND Orthopaedic Surgery | DX: M25.571 Pain in right ankle and joints of right foot (principal) ==

== ENCOUNTER → 2022-02-14 | Outpatient (REF) | payer OTHER | LOC: M LAB REF 16:02 | PROVIDERS: ATTEND Nurse Practitioner Family | DX: E03.9 Hypothyroidism, unspecified (principal) ==

== ENCOUNTER → 2022-05-04 | Outpatient (REF) | payer OTHER ==
[2022-05-04 13:27] LABS: CHOLESTEROL RISK RATIO 2.04 (<5); HDL CHOLESTEROL 79.8 MG/DL (>40); THYROID STIMULATING HORMONE 48.461 uIU/ML (0.55-4.78)
== END ==
LOC: M LAB REF 12:15
PROVIDERS: ATTEND Nurse Practitioner Family
DX: E03.9 Hypothyroidism, unspecified (principal); E78.5 Hyperlipidemia, unspecified

== ENCOUNTER → 2022-07-07 | Outpatient (REF) | payer OTHER ==
[2022-07-07 18:35] LABS: THYROID STIMULATING HORMONE 3.423 uIU/ML (0.55-4.78)
[2022-07-07 18:43] LABS: ALBUMIN 3.7 G/DL (3.2-5.2); ALKALINE PHOSPHATASE 97 U/L (46-116); ALT/SGPT 58 U/L (7.0-40); AST/SGOT 139 U/L (<34); BILIRUBIN,TOTAL 0.5 MG/DL (0.3-1.2); BLOOD UREA NITROGEN 9 MG/DL (9-23); CALCIUM LEVEL 8.4 MG/DL (8.5-10.1); CARBON DIOXIDE LEVEL 22 MMOL/L (20-31); CHLORIDE LEVEL 103 MMOL/L (98-107); CREATININE FOR GFR 0.55 MG/DL (0.55-1.30); GLOMERULAR FILTRATION RATE > 60.0 (>51); GLUCOSE, FASTING 81 MG/DL (60-100); MAGNESIUM LEVEL 1.2 MG/DL (1.8-2.4); POTASSIUM SERUM 4.9 MMOL/L (3.5-5.1); SODIUM LEVEL 137 MMOL/L (136-145); TOTAL PROTEIN 8.3 G/DL (5.7-8.2)
== END ==
LOC: M LAB REF 16:32
PROVIDERS: ATTEND Nurse Practitioner Family
DX: K21.9 Gastro-esophageal reflux disease without esophagitis (principal)

== ENCOUNTER → 2022-10-31 | Outpatient (REF) | payer OTHER ==
[2022-10-31 17:25] LABS: CHOLESTEROL RISK RATIO 3.19 (<5); HDL CHOLESTEROL 65.1 MG/DL (>40); LDL CHOLESTEROL 116.5 MG/DL (<100); NON-HDL-C 142.9 MG/DL
[2022-10-31 17:28] LABS: THYROID STIMULATING HORMONE 1.473 uIU/ML (0.55-4.78)
== END ==
LOC: M LAB REF 16:37
PROVIDERS: ATTEND Nurse Practitioner Family
DX: E03.9 Hypothyroidism, unspecified (principal); E78.5 Hyperlipidemia, unspecified

== ENCOUNTER → 2023-03-15 | Outpatient (REF) | payer OTHER ==
[2023-03-15 16:38] LABS: BASO # 0.1 10^3/uL (0.0-0.2); BASO % 1.6 % (0.0-1.0); EOS # 0.2 10^3/uL (0.0-0.5); EOS % 4.2 % (0.0-3.0); HEMATOCRIT 39.2 % (36.0-47.0); HEMOGLOBIN 13.8 g/dl (12.0-15.5); LYMPH # 1.7 10^3/uL (1.5-5.0); LYMPH % 30.1 % (24.0-44.0); MEAN CORPUSCULAR HEMOGLOBIN 34.6 pg (27.0-33.0); MEAN CORPUSCULAR HGB CONC 35.2 g/dl (32.0-36.5); MEAN CORPUSCULAR VOLUME 98.2 fl (80.0-96.0); MONO # 0.5 10^3/uL (0.0-0.8); MONO % 8.5 % (2.0-8.0); NEUTROPHILS # 3.2 10^3/uL (1.5-8.5); NEUTROPHILS % 55.4 % (36.0-66.0); PLATELET COUNT, AUTOMATED 208 10^3/uL (150-450); RED BLOOD COUNT 3.99 10^6/uL (4.00-5.40); WHITE BLOOD COUNT 5.8 10^3/uL (4.0-10.0)
[2023-03-15 17:13] LABS: ALBUMIN 3.4 G/DL (3.2-5.2); ALKALINE PHOSPHATASE 92 U/L (46-116); ALT/SGPT 39 U/L (7.0-40); AST/SGOT 93 U/L (<34); BILIRUBIN,TOTAL 0.6 MG/DL (0.3-1.2); BLOOD UREA NITROGEN 6 MG/DL (9-23); CALCIUM LEVEL 8.8 MG/DL (8.5-10.1); CARBON DIOXIDE LEVEL 23 MMOL/L (20-31); CHLORIDE LEVEL 103 MMOL/L (98-107); CHOLESTEROL LEVEL 198 MG/DL (<200); CHOLESTEROL RISK RATIO 3.78 (<5); CREATININE FOR GFR 0.55 MG/DL (0.55-1.30); GLOMERULAR FILTRATION RATE > 60.0 (>51); GLUCOSE, FASTING 114 MG/DL (60-100); HDL CHOLESTEROL 52.3 MG/DL (>40); LDL CHOLESTEROL 121.3 MG/DL (<100); MAGNESIUM LEVEL 1.2 MG/DL (1.8-2.4); NON-HDL-C 145.7 MG/DL; POTASSIUM SERUM 4.4 MMOL/L (3.5-5.1); SODIUM LEVEL 136 MMOL/L (136-145); TOTAL 25(OH) VITAMIN D 42.2 NG/ML (20.0-100.0); TOTAL PROTEIN 8.3 G/DL (5.7-8.2); TRIGLYCERIDES LEVEL 122 MG/DL (<150)
== END ==
LOC: M LAB REF 16:18
PROVIDERS: ATTEND Nurse Practitioner Family
DX: E78.5 Hyperlipidemia, unspecified (principal); E03.9 Hypothyroidism, unspecified; Z13.228 Encounter for screening for other metabolic disorders

== ENCOUNTER → 2023-06-05 | Outpatient (REF) | payer OTHER ==
[2023-06-05 18:41] LABS: ALBUMIN 3.6 G/DL (3.2-5.2); ALKALINE PHOSPHATASE 101 U/L (46-116); ALT/SGPT 51 U/L (7.0-40); AST/SGOT 142 U/L (<34); BILIRUBIN,TOTAL 0.5 MG/DL (0.3-1.2); BLOOD UREA NITROGEN 8 MG/DL (9-23); CALCIUM LEVEL 8.9 MG/DL (8.5-10.1); CARBON DIOXIDE LEVEL 26 MMOL/L (20-31); CHLORIDE LEVEL 103 MMOL/L (98-107); CREATININE FOR GFR 0.67 MG/DL (0.55-1.30); GLOMERULAR FILTRATION RATE > 60.0 (>51); GLUCOSE, FASTING 85 MG/DL (60-100); MAGNESIUM LEVEL 1.3 MG/DL (1.8-2.4); POTASSIUM SERUM 4.1 MMOL/L (3.5-5.1); SODIUM LEVEL 136 MMOL/L (136-145); TOTAL PROTEIN 8.5 G/DL (5.7-8.2)
== END ==
LOC: M LAB REF 16:42
PROVIDERS: ATTEND Nurse Practitioner Family
DX: E83.42 Hypomagnesemia (principal); R74.8 Abnormal levels of other serum enzymes

== ENCOUNTER → 2023-06-30 | Outpatient (REF) | payer OTHER ==
[2023-06-30 19:26] LABS: ALBUMIN 3.6 G/DL (3.2-5.2); ALKALINE PHOSPHATASE 86 U/L (46-116); ALT/SGPT 90 U/L (7.0-40); AST/SGOT 171 U/L (<34); BILIRUBIN,TOTAL 0.4 MG/DL (0.3-1.2); BLOOD UREA NITROGEN 8 MG/DL (9-23); CALCIUM LEVEL 9.1 MG/DL (8.5-10.1); CARBON DIOXIDE LEVEL 26 MMOL/L (20-31); CHLORIDE LEVEL 102 MMOL/L (98-107); CHOLESTEROL LEVEL 163 MG/DL (<200); CHOLESTEROL RISK RATIO 3.29 (<5); CREATININE FOR GFR 0.58 MG/DL (0.55-1.30); GLOMERULAR FILTRATION RATE > 60.0 (>51); GLUCOSE, FASTING 105 MG/DL (60-100); HDL CHOLESTEROL 49.5 MG/DL (>40); LDL CHOLESTEROL 97.9 MG/DL (<100); MAGNESIUM LEVEL 1.3 MG/DL (1.8-2.4); NON-HDL-C 113.5 MG/DL; POTASSIUM SERUM 4.2 MMOL/L (3.5-5.1); SODIUM LEVEL 133 MMOL/L (136-145); THYROID STIMULATING HORMONE 0.434 uIU/ML (0.55-4.78); TOTAL PROTEIN 8.3 G/DL (5.7-8.2); TRIGLYCERIDES LEVEL 78 MG/DL (<150)
== END ==
LOC: M LAB REF 17:29
PROVIDERS: ATTEND Nurse Practitioner Family
DX: E03.9 Hypothyroidism, unspecified (principal); R74.8 Abnormal levels of other serum enzymes; E83.42 Hypomagnesemia; E78.5 Hyperlipidemia, unspecified

== ENCOUNTER → 2023-07-11 | Outpatient (CLI) | payer OTHER | LOC: M RAD 08:02 | PROVIDERS: ATTEND Nurse Practitioner Family | DX: R74.01 Elevation of levels of liver transaminase levels (principal) ==

== ENCOUNTER → 2023-08-29 | Outpatient (REF) | payer OTHER ==
[2023-08-29 19:16] LABS: THYROID STIMULATING HORMONE 0.043 uIU/ML (0.55-4.78)
[2023-08-29 19:17] LABS: ALBUMIN 3.1 G/DL (3.2-5.2); ALKALINE PHOSPHATASE 78 U/L (46-116); ALT/SGPT 57 U/L (7.0-40); AST/SGOT 93 U/L (<34); BILIRUBIN,TOTAL 0.5 MG/DL (0.3-1.2); BLOOD UREA NITROGEN 9 MG/DL (9-23); CALCIUM LEVEL 9.3 MG/DL (8.5-10.1); CARBON DIOXIDE LEVEL 24 MMOL/L (20-31); CHLORIDE LEVEL 103 MMOL/L (98-107); GLOMERULAR FILTRATION RATE > 60.0 (>51); GLUCOSE, FASTING 98 MG/DL (60-100); MAGNESIUM LEVEL 1.3 MG/DL (1.8-2.4); POTASSIUM SERUM 4.8 MMOL/L (3.5-5.1); SODIUM LEVEL 137 MMOL/L (136-145); TOTAL PROTEIN 8.4 G/DL (5.7-8.2)
== END ==
LOC: M LAB REF 17:11
PROVIDERS: ATTEND Nurse Practitioner Family
DX: E83.42 Hypomagnesemia (principal); E03.9 Hypothyroidism, unspecified; R74.8 Abnormal levels of other serum enzymes

== ENCOUNTER → 2023-11-09 | Outpatient (REF) | payer OTHER ==
[2023-11-14 14:57] LABS: HPV APTIMA Not Detected (Not Detected)
== END ==
LOC: M SFHCWAGY 17:26
PROVIDERS: ATTEND Nurse Practitioner Family
DX: Z12.4 Encounter for screening for malignant neoplasm of cervix (principal); R87.610 Atypical squamous cells of undetermined significance on cytologic smear of cervix (ASC-US)

== ENCOUNTER → 2023-11-09 | Outpatient (CLI) | payer OTHER | LOC: M WHC 11:30 | PROVIDERS: ATTEND Obstetrics & Gynecology | DX: Z12.31 Encounter for screening mammogram for malignant neoplasm of breast (principal) ==

== ENCOUNTER → 2024-07-03 | Outpatient (REF) | payer OTHER ==
[2024-07-03 18:19] LABS: BASO # 0.1 10^3/uL (0.0-0.2); BASO % 1.2 % (0.0-1.0); EOS # 0.3 10^3/uL (0.0-0.5); EOS % 3.7 % (0.0-3.0); HEMATOCRIT 41.6 % (36.0-47.0); HEMOGLOBIN 14.3 g/dl (12.0-15.5); LYMPH # 2.6 10^3/uL (1.5-5.0); LYMPH % 38.4 % (24.0-44.0); MEAN CORPUSCULAR HEMOGLOBIN 33.6 pg (27.0-33.0); MEAN CORPUSCULAR HGB CONC 34.4 g/dl (32.0-36.5); MEAN CORPUSCULAR VOLUME 97.9 fl (80.0-96.0); MONO # 0.6 10^3/uL (0.0-0.8); MONO % 8.3 % (2.0-8.0); NEUTROPHILS # 3.2 10^3/uL (1.5-8.5); NEUTROPHILS % 48.1 % (36.0-66.0); PLATELET COUNT, AUTOMATED 228 10^3/uL (150-450); RED BLOOD COUNT 4.25 10^6/uL (4.00-5.40); WHITE BLOOD COUNT 6.7 10^3/uL (4.0-10.0)
[2024-07-03 18:21] LABS: ALBUMIN 3.6 G/DL (3.2-5.2); ALKALINE PHOSPHATASE 92 U/L (35-104); ALT/SGPT 55 U/L (7.0-40); AST/SGOT 90 U/L (<34); BILIRUBIN,TOTAL 0.6 MG/DL (0.3-1.2); BLOOD UREA NITROGEN 10 MG/DL (9-23); CARBON DIOXIDE LEVEL 25 MMOL/L (20-31); CHLORIDE LEVEL 103 MMOL/L (98-107); CHOLESTEROL LEVEL 204 MG/DL (<200); CHOLESTEROL RISK RATIO 3.73 (<5); CREATININE FOR GFR 0.66 MG/DL (0.55-1.30); GLOMERULAR FILTRATION RATE > 60.0 (>51); GLUCOSE, FASTING 94 MG/DL (60-100); HDL CHOLESTEROL 54.6 MG/DL (>40); LDL CHOLESTEROL 123.6 MG/DL (<100); MAGNESIUM LEVEL 1.5 MG/DL (1.8-2.4); NON-HDL-C 149.4 MG/DL; SODIUM LEVEL 137 MMOL/L (136-145); TOTAL PROTEIN 8.9 G/DL (5.7-8.2); TRIGLYCERIDES LEVEL 129 MG/DL (<150)
[2024-07-03 18:23] LABS: FREE T4 1.09 NG/DL (0.89-1.76); THYROID STIMULATING HORMONE 17.689 uIU/ML (0.55-4.78)
== END ==
LOC: M LAB REF 17:31
PROVIDERS: ATTEND Nurse Practitioner Family
DX: E03.9 Hypothyroidism, unspecified (principal); E83.42 Hypomagnesemia; R74.8 Abnormal levels of other serum enzymes; E78.5 Hyperlipidemia, unspecified; E66.9 Obesity, unspecified

== ENCOUNTER → 2024-08-08 | Outpatient (REF) | payer OTHER ==
[2024-08-08 19:37] LABS: FREE T4 1.66 NG/DL (0.89-1.76); THYROID STIMULATING HORMONE 0.258 uIU/ML (0.55-4.78)
[2024-08-08 21:24] LABS: HEMOGLOBIN A1c 5.2 % (4.0-6.0)
== END ==
LOC: M LAB REF 17:37
PROVIDERS: ATTEND Nurse Practitioner Family
DX: E66.9 Obesity, unspecified (principal)

== ENCOUNTER → 2025-01-03 | Outpatient (REF) | payer OTHER ==
[2025-01-03 16:38] LABS: ALT/SGPT 44 U/L (7.0-40); AST/SGOT 95 U/L (<34); CALCIUM LEVEL 9.1 MG/DL (8.5-10.1); CARBON DIOXIDE LEVEL 25 MMOL/L (20-31); CHLORIDE LEVEL 104 MMOL/L (98-107); CHOLESTEROL LEVEL 183 MG/DL (<200); CHOLESTEROL RISK RATIO 3.43 (<5); CREATININE FOR GFR 0.65 MG/DL (0.55-1.30); GLOMERULAR FILTRATION RATE > 90.0 (>51); LDL CHOLESTEROL 105.9 MG/DL (<100); NON-HDL-C 129.7 MG/DL; POTASSIUM SERUM 4.5 MMOL/L (3.5-5.1); SODIUM LEVEL 140 MMOL/L (136-145); TRIGLYCERIDES LEVEL 119 MG/DL (<150)
== END ==
LOC: M LAB REF 16:09
PROVIDERS: ATTEND Nurse Practitioner Family
DX: E03.9 Hypothyroidism, unspecified (principal); E78.5 Hyperlipidemia, unspecified; R74.8 Abnormal levels of other serum enzymes